=== PATIENT | female | born 1950 | race Caucasian/White ===

== ENCOUNTER 2016-12-30 08:00 | Outpatient (CLI) | payer BC | END 2016-12-30 23:59 | disposition home or self-care (01) | DX: N39.0 Urinary tract infection, site not specified (principal) ==

== ENCOUNTER 2017-04-27 11:41 | Outpatient (CLI) | payer BC ==
[2017-04-27 12:26] LABS: CALCIUM 9.6 mg/dL (8.5-10.3); CREATININE 0.8 mg/dL (0.4-1.0); POTASSIUM 4.2 mmol/L (3.5-5.0)
== END 2017-04-27 11:42 | disposition home or self-care (01) ==
LOC: LAB 11:41
PROVIDERS: ATTEND Family Medicine
DX: R60.9 Edema, unspecified (principal); M25.50 Pain in unspecified joint
CPT/HCPCS: 36415; 80048; 82550; 85651

== ENCOUNTER 2017-05-07 07:32 | Outpatient (CLI) | payer BC ==
[2017-05-07 08:00] LABS: BASOPHILS # (AUTO) 0.1 10^3/uL (0.0-0.1); BASOPHILS % (AUTO) 0.8 %; EOSINOPHILS # (AUTO) 0.2 10^3/uL (0.0-0.7); EOSINOPHILS % (AUTO) 2.4 %; HCT - HEMATOCRIT 45.1 % (37.0-47.0); HGB - HEMOGLOBIN 15.2 g/dL (12.0-16.0); LYMPHOCYTES # (AUTO) 2.3 10^3/uL (1.5-3.5); LYMPHOCYTES % (AUTO) 36.1 %; MEAN CORPUSCULAR HEMOGLOBIN 30.3 pg (27.0-31.0); MEAN CORPUSCULAR HGB CONC 33.8 g/dL (32.0-36.0); MEAN CORPUSCULAR VOLUME 89.8 fL (81.0-99.0); MEAN PLATELET VOLUME 8.6 fL (7.9-10.8); MONOCYTES # (AUTO) 0.3 10^3/uL (0.0-1.0); MONOCYTES % (AUTO) 5.3 %; NEUTROPHILS # (AUTO) 3.5 10^3/uL (1.5-6.6); NEUTROPHILS % (AUTO) 55.4 %; RED BLOOD COUNT 5.02 10^6/uL (4.20-5.40); RED CELL DISTRIBUTION WIDTH 13.1 % (12.0-15.0); UNCORRECTED WHITE BLOOD COUNT 6.3 x10^3/uL; WHITE BLOOD COUNT 6.3 x10^3/uL (4.8-10.8)
[2017-05-07 08:17] LABS: HEMOGLOBIN A1C 0.61 g/dL
[2017-05-07 08:18] LABS: ALBUMIN/GLOBULIN RATIO 1.2 (1.0-2.2); BILIRUBIN,TOTAL 0.8 mg/dL (0.2-1.0); BUN - BLOOD UREA NITROGEN 19 mg/dL (6-20); CALCIUM 9.4 mg/dL (8.5-10.3); CARBON DIOXIDE - CO2 27 mmol/L (21-32); CHLORIDE 96 mmol/L (101-111); CHOL/HDL RATIO 2.5 (<4.4); CHOLESTEROL 233 mg/dL; CREATININE 0.8 mg/dL (0.4-1.0); GFR - MDRD 72 (>89); GLUCOSE 100 mg/dL (70-100); HDL CHOLESTEROL 92 mg/dL; LDL/HDL RATIO 1.3 (<4.4); POTASSIUM 4.1 mmol/L (3.5-5.0); SODIUM 133 mmol/L (135-145); TOTAL PROTEIN 8.2 g/dL (6.7-8.2); TRIGLYCERIDES 91 mg/dL; VLDL CHOLESTEROL 18 mg/dL
== END 2017-05-07 07:33 | disposition home or self-care (01) ==
LOC: LAB 07:32
PROVIDERS: ATTEND Family Medicine
DX: R73.01 Impaired fasting glucose (principal); E78.5 Hyperlipidemia, unspecified; I10 Essential (primary) hypertension
CPT/HCPCS: 36415; 80053; 80061; 83036; 85025

== ENCOUNTER 2017-11-11 14:57 | Outpatient (CLI) | payer BC ==
--- NOTE | 2017-11-13 15:57 | Mammography Report ---
DIGITAL SCREENING MAMMOGRAM: 11/11/2017 CLINICAL INDICATION: A 67-year-old nulliparous patient with history of benign right breast biopsy, for screening. COMPARISON: 08/2016, 07/2015, 06/2014, 04/2013, 04/2012, 04/2011, 04/2010. TECHNIQUE: Routine CC and MLO projections were obtained of the breasts. FINDINGS: The breasts again demonstrate scattered fibroglandular densities bilaterally. Coarse and punctate, typically benign calcifications are present. Postbiopsy changes in the right breast are stable. No suspicious masses, clustered microcalcifications, or regions of architectural distortion are identified. IMPRESSION: BENIGN FINDINGS. RECOMMENDATION: ROUTINE ANNUAL SCREENING UNLESS OTHERWISE CLINICALLY INDICATED. BIRADS CATEGORY 2-BENIGN FINDINGS. STANDARD QUALIFYING STATEMENTS: 1. This examination was reviewed with the aid of Computer-Aided Detection (CAD). 2. A negative or benign imaging report should not delay biopsy if clinically suspicious findings are present. Consider surgical consultation if warranted. More than 5% of cancers are not identified by imaging. 3. Dense breasts may obscure an underlying neoplasm. TD: 11/13/2017 15:56
== END 2017-11-11 14:58 | disposition home or self-care (01) ==
LOC: DI 14:57
PROVIDERS: ATTEND Family Medicine
DX: Z12.31 Encounter for screening mammogram for malignant neoplasm of breast (principal)
CPT/HCPCS: 77067

== ENCOUNTER 2018-05-07 14:28 | Outpatient (CLI) | payer BC ==
--- NOTE | 2018-05-07 15:43 | DEXA Report ---
Procedure Date: 05/07/2018 Accession Number: [id number] / [id number] Procedure: DEX - Dexa Spine and/or Hip CPT Code: FULL RESULT: EXAM: DUAL EMISSION X-RAY ABSORPTIOMETRY (DXA) SCAN EXAM DATE: 05/07/2018 02:56 PM. CLINICAL HISTORY: Bone disorder. COMPARISON: None. ADDITIONAL PATIENT INFORMATION: Postmenopausal patient with history of low bone mineral density. Clinical factors included in FRAX calculation if applicable: None known. MODALITY INFORMATION: Central DEXA bone densitometry on a I Do Now I Don't W system ([id number]). FRAX version 3.08 utilized for probability calculation of 10 year fracture risk. TECHNIQUE: Lumbar spine, left hip evaluated. TECHNIQUE LIMITATIONS/EXCLUSIONS: None. FINDINGS: Lumbar Spine: Bone mineral density 1.210 g/sq cm, T-score 0.3, Z-score 1.9. Femoral Neck: Bone mineral density 0.854 g/sq cm, T-score -1.3, Z-score 0.3. Total Hip: Bone mineral density 0.893 g/sq cm, T-score -0.9, Z-score 0.5. IMPRESSION: Normal bone density for cohort. World Health Organization (WHO) Reporting guidelines (based on lowest BMD) for postmenopausal and perimenopausal women, men age 50 years and older: Normal: T-score at or greater than -1.0 Osteopenia: T-score between -1.1 to -2.4 Osteoporosis: T-score at or less than -2.5 National Osteoporosis Foundation/International Society for Clinical Densitometry recommended use of WHO Fracture risk assessment tool (FRAX): Untreated postmenopausal women or men age 50-90 with low bone mass (T score between -1.1 to -2.4), no prior hip or vertebral fracture, and an evaluable hip for scan. RADIA
== END 2018-05-07 14:29 | disposition home or self-care (01) ==
LOC: DI 14:28
PROVIDERS: ATTEND Family Medicine
DX: M89.9 Disorder of bone, unspecified (principal); Z78.0 Asymptomatic menopausal state
CPT/HCPCS: 77080

== ENCOUNTER 2018-06-25 08:13 | Outpatient (CLI) | payer BC ==
[2018-06-25 09:02] LABS: BASOPHILS % (AUTO) 0.3 %; EOSINOPHILS % (AUTO) 1.6 %; HGB - HEMOGLOBIN 12.7 g/dL (12.0-16.0); LYMPHOCYTES % (AUTO) 79.2 %; MEAN CORPUSCULAR HEMOGLOBIN 34.9 pg (27.0-31.0); MEAN CORPUSCULAR HGB CONC 35.7 g/dL (32.0-36.0); MEAN CORPUSCULAR VOLUME 97.8 fL (81.0-99.0); MEAN PLATELET VOLUME 7.5 fL (7.9-10.8); MONOCYTES % (AUTO) 0.5 %; NEUTROPHILS % (AUTO) 18.4 %; PLT - PLATELET COUNT 183 10^3/uL (130-450); RED BLOOD COUNT 3.64 10^6/uL (4.20-5.40); RED CELL DISTRIBUTION WIDTH 14.1 % (12.0-15.0)
[2018-06-25 09:11] LABS: ALBUMIN 3.9 g/dL (3.2-5.5); ALBUMIN/GLOBULIN RATIO 1.1 (1.0-2.2); ALKALINE PHOSPHATASE 55 IU/L (42-121); ALT ALANINE AMINOTRANSFERASE 22 IU/L (10-60); AST ASPARTATE AMINOTRANSFERASE 21 IU/L (10-42); BILIRUBIN,TOTAL 0.6 mg/dL (0.2-1.0); BUN - BLOOD UREA NITROGEN 19 mg/dL (6-20); CALCIUM 8.9 mg/dL (8.5-10.3); CARBON DIOXIDE - CO2 27 mmol/L (21-32); CHLORIDE 98 mmol/L (101-111); CHOL/HDL RATIO 2.1 (<4.4); CHOLESTEROL 213 mg/dL; CREATININE 0.7 mg/dL (0.4-1.0); GFR - MDRD 83 (>89); GLUCOSE 103 mg/dL (70-100); HDL CHOLESTEROL 101 mg/dL; LDL CHOLESTEROL,CALCULATED 103 mg/dL; SODIUM 133 mmol/L (135-145); TOTAL PROTEIN 7.4 g/dL (6.7-8.2); VLDL CHOLESTEROL 9 mg/dL
[2018-06-25 09:20] LABS: WHITE BLOOD COUNT 1.4 x10^3/uL (4.8-10.8)
[2018-06-25 09:21] LABS: BAND NEUTROPHILS % (MANUAL) 0 %
[2018-06-25 09:30] LABS: ABNORMAL LYMPHS % (MANUAL) 31 %; LYMPHOCYTES % (MANUAL) 39 %; MONOCYTES # (MANUAL) 0.1 10^3/uL (0.0-1.0); NEUTROPHILS # (MANUAL) 0.3 10^3/uL (1.5-6.6); NEUTROPHILS % (MANUAL) 19 %
[2018-06-25 09:32] LABS: PLATELET ESTIMATE, MANUAL NORMAL (130-450,000) (NORMAL); RBC MORPHOLOGY (MULTIPLE) NORMAL APPEARANCE (NORMAL)
[2018-06-25 09:33] LABS: DIFFERENTIAL COMMENT MANUAL DIFFERENTIAL
== END 2018-06-25 08:14 | disposition home or self-care (01) ==
LOC: LAB 08:13
PROVIDERS: ATTEND Family Medicine
DX: I10 Essential (primary) hypertension (principal); E78.5 Hyperlipidemia, unspecified; D70.9 Neutropenia, unspecified
CPT/HCPCS: 36415; 80053; 80061; 83721; 85025

== ENCOUNTER 2018-06-25 14:59 | Outpatient (CLI) | payer BC ==
[2018-06-25 19:27] LABS: BASOPHILS % (AUTO) 0.2 %; EOSINOPHILS % (AUTO) 1.8 %; HGB - HEMOGLOBIN 13.2 g/dL (12.0-16.0); LYMPHOCYTES # (AUTO) 1.1 10^3/uL (1.5-3.5); MEAN CORPUSCULAR HEMOGLOBIN 34.5 pg (27.0-31.0); MEAN CORPUSCULAR HGB CONC 34.8 g/dL (32.0-36.0); MEAN CORPUSCULAR VOLUME 99.1 fL (81.0-99.0); MEAN PLATELET VOLUME 7.9 fL (7.9-10.8); PLT - PLATELET COUNT 194 10^3/uL (130-450); RED BLOOD COUNT 3.84 10^6/uL (4.20-5.40); RED CELL DISTRIBUTION WIDTH 14.4 % (12.0-15.0)
[2018-06-25 20:23] LABS: PLATELET ESTIMATE, MANUAL NORMAL (130-450,000) (NORMAL); PLATELET MORPHOLOGY NORMAL APPEARANCE (NORMAL); RBC MORPHOLOGY (MULTIPLE) 1+ ANISOCYTOSIS (NORMAL)
[2018-06-25 20:50] LABS: WHITE BLOOD COUNT 1.5 x10^3/uL (4.8-10.8)
[2018-06-25 20:51] LABS: NEUTROPHILS # (AUTO) 0.4 10^3/uL (1.5-6.6)
== END 2018-06-25 15:00 | disposition home or self-care (01) ==
LOC: LAB.WCP 14:59
PROVIDERS: ATTEND Nurse Practitioner
DX: D70.9 Neutropenia, unspecified (principal)
CPT/HCPCS: 85025

== ENCOUNTER 2018-07-02 08:16 | Outpatient (CLI) | payer BC ==
[2018-07-02 14:43] LABS: ALBUMIN/GLOBULIN RATIO 1.2 (1.0-2.2); BILIRUBIN,TOTAL 0.3 mg/dL (0.2-1.0); CALCIUM 9.3 mg/dL (8.5-10.3); CREATININE 0.7 mg/dL (0.4-1.0); TOTAL PROTEIN 7.3 g/dL (6.7-8.2)
[2018-07-02 14:46] LABS: BASOPHILS % (AUTO) 0.3 %; EOSINOPHILS % (AUTO) 1.4 %; HGB - HEMOGLOBIN 12.4 g/dL (12.0-16.0); LYMPHOCYTES # (AUTO) 1.2 10^3/uL (1.5-3.5); LYMPHOCYTES % (AUTO) 82.6 %; MEAN CORPUSCULAR HEMOGLOBIN 35.1 pg (27.0-31.0); MEAN CORPUSCULAR HGB CONC 35.6 g/dL (32.0-36.0); MEAN CORPUSCULAR VOLUME 98.7 fL (81.0-99.0); MEAN PLATELET VOLUME 8.2 fL (7.9-10.8); MONOCYTES % (AUTO) 1.1 %; NEUTROPHILS % (AUTO) 14.6 %; PLT - PLATELET COUNT 177 10^3/uL (130-450); RED BLOOD COUNT 3.52 10^6/uL (4.20-5.40); RED CELL DISTRIBUTION WIDTH 13.9 % (12.0-15.0)
[2018-07-02 14:54] LABS: NEUTROPHILS # (AUTO) 0.2 10^3/uL (1.5-6.6); WHITE BLOOD COUNT 1.5 x10^3/uL (4.8-10.8)
[2018-07-02 15:11] LABS: INR 0.9 (0.8-1.2); PT - PROTHROMBIN TIME 10.4 secs (9.9-12.6)
[2018-07-02 15:25] LABS: PLATELET ESTIMATE, MANUAL NORMAL (130-450,000) (NORMAL); PLATELET MORPHOLOGY NORMAL APPEARANCE (NORMAL); RBC MORPHOLOGY (MULTIPLE) NORMAL APPEARANCE (NORMAL)
== END 2018-07-02 08:17 | disposition home or self-care (01) ==
LOC: LAB.WCP 08:16
PROVIDERS: ATTEND Family Medicine
DX: D70.9 Neutropenia, unspecified (principal); D61.818 Other pancytopenia
CPT/HCPCS: 36415; 80053; 85025; 85044; 85610; 85730

== ENCOUNTER 2018-10-11 09:33 | Inpatient (IN) | payer MEDICARE, BC ==
--- NOTE | 2018-10-11 11:10 | XRAY Report ---
Reason: fever neutropenia Procedure Date: 10/11/2018 Accession Number: [id number] / [id number] Procedure: XR - Chest 2 View X-Ray CPT Code: 50798 FULL RESULT: EXAM: CHEST RADIOGRAPHY EXAM DATE: 10/11/2018 11:01 AM. CLINICAL HISTORY: Fever neutropenia. COMPARISON: None. TECHNIQUE: 2 views. FINDINGS: Lungs/Pleura: No focal opacities evident. No pleural effusion. No pneumothorax. Normal volumes. Mediastinum: Heart and mediastinal contours are unremarkable. Other: Right subclavian approach port with tip in the region of the lower SVC. IMPRESSION: No pneumonia. RADIA
--- NOTE | 2018-10-11 11:19 | ED Physician Documentation ---
History of Present Illness - Stated complaint Stated Complaint: FEVER/FATIGUE - Chief complaint Chief Complaint: Fever - History obtained from History obtained from: Patient, Family - History of Present Illness Timing: Today - Additonal information Additional information: 68-year-old female with a history of acute myelogenous leukemia who is undergone induction and 2 cycles of consolidation has developed fatigue and today has fever. She noted a fever at her home today of 101. She does not have other symptoms with the exception of the fatigue. She most recently had a round of consolidative chemotherapy on 24 September 2018. She was seen in the [facility] clinic last week and had platelets transfused. She did not require blood at that time. She was noted to be neutropenic. She did not have fever or symptoms at that time. Review of Systems Constitutional: reports: Fever, Fatigue. denies: Chills, Myalgias Eyes: denies: Decreased vision Ears: denies: Ear pain Nose: denies: Rhinorrhea / runny nose, Congestion Throat: denies: Sore throat Cardiac: denies: Chest pain / pressure, Palpitations Respiratory: denies: Dyspnea, Cough GI: denies: Abdominal Pain, Nausea, Vomiting, Constipation, Diarrhea : denies: Dysuria, Frequency Skin: denies: Rash Musculoskeletal: denies: Neck pain, Back pain, Extremity pain Neurologic: reports: Generalized weakness. denies: Focal weakness, Numbness PD PAST MEDICAL HISTORY - Past Medical History Cardiovascular: Hypertension - Past Surgical History Past Surgical History: Yes - Present Medications Home Medications: Ambulatory Orders Medication Instructions Recorded Confirmed Lisinopril 10 mg PO DAILY 08/31/14 10/11/18 Acyclovir 1 tab PO DAILY 09/17/18 10/11/18 Ketoconazole [Extina] 1 applic TD DAILY 09/17/18 10/11/18 C,E,Zinc,Copper 11/Dkmyj6p/Lut 10/11/18 [Ocuvite Adult 50 Plus Softgel] Bath-3/Dha/Epa/Fish Oil [Fish Oil 10/11/18 1,000 mg Softgel] - Allergies Allergies/Adverse Reactions: Allergies Allergy/AdvReac Type Severity Reaction Status Date / Time Cephalosporins Allergy Rash Verified 10/11/18 09:53 estrogens, conjugated Allergy Unknown Verified 10/11/18 09:53 [From Premarin] Sulfa (Sulfonamide Allergy Rash Verified 10/11/18 09:53 Antibiotics) thimerosal Allergy Rash Verified 10/11/18 09:53 - Social History Does the pt smoke?: No Smoking Status: Never smoker Does the pt drink ETOH?: Yes Does the pt have substance abuse?: No - Immunizations Immunizations are current?: Yes - POLST Patient has POLST: No PD ED PE NORMAL - Vitals Vital signs reviewed: Yes (tachy ) - General General: Alert and oriented X 3, No acute distress, Well developed/nourished, Other (pale appearing ) - HEENT HEENT: Atraumatic, PERRL, EOMI, Ears normal, Moist mucous membranes, Pharynx benign - Neck Neck: Supple, no meningeal sign, No bony TTP - Cardiac Cardiac: No murmur, Other (tachy to 100) - Respiratory Respiratory: No respiratory distress, Clear bilaterally - Abdomen Abdomen: Soft, Non tender - Back Back: No CVA TTP, No spinal TTP - Derm Derm: Warm and dry, No rash, Other (pale ) - Extremities Extremities: No deformity, No edema - Neuro Neuro: Alert and oriented X 3, relationship management lead 2-12 intact, No motor deficit, No sensory deficit, Normal speech Eye Opening: Spontaneous Motor: Obeys Commands Verbal: Oriented GCS Score: 15 - Psych Psych: Normal mood, Normal affect Results - Vitals Vitals: Vital Signs - 24 hr 10/11/18 10/11/18 10/11/18 09:45 10:48 13:28 Temperature 36.6 C 36.3 C L 36.1 C L Heart Rate 104 H 98 98 Respiratory 16 18 18 Rate Blood Pressure 97/71 144/72 H 141/58 H O2 Saturation 100 100 100 Oxygen O2 Source Room air - Labs Labs: Laboratory Tests 10/11/18 10/11/18 10/11/18 11:24 11:24 11:24 WBC 0.3 L* RBC 2.11 L Hgb 6.7 L* Hct 19.0 L* MCV 89.6 MCH 31.7 H MCHC 35.4 RDW 18.2 H Plt Count 39 L MPV 7.1 L Neut # (Auto) Not Reportable Lymph # (Auto) Not Reportable Luce # (Auto) Not Reportable Eos # (Auto) Not Reportable Baso # (Auto) Not Reportable Absolute Nucleated RBC Not Reportable Total Counted 50 Band Neuts % (Manual) 0 Abnorm Lymph % (Manual) 4 Nucleated RBC % Not Reportable Neutrophils # (Manual) 0.0 L* Lymphocytes # (Manual) 0.3 L Monocytes # (Manual) 0.0 Eosinophils # (Manual) 0.0 Basophils # (Manual) 0.0 Differential Comment MANUAL DIFFERENTIAL Platelet Estimate DECREASED (<130,000) Platelet Morphology NORMAL APPEARANCE RBC Morph Micro Appear 2+ MICROCYTOSIS Sodium 134 L Potassium 3.9 Chloride 102 Carbon Dioxide 25 Anion Gap 7.0 BUN 19 Creatinine 0.7 Estimated GFR (MDRD) 83 L Glucose 107 H Lactic Acid Calcium 8.9 Total Bilirubin 0.8 AST 30 ALT 57 Alkaline Phosphatase 81 Troponin I < 0.04 Total Protein 6.6 L Albumin 3.5 Globulin 3.1 Albumin/Globulin Ratio 1.1 Lipase 40 Urine Color Urine Clarity Urine pH Ur Specific [place] Urine Protein Urine Glucose (UA) Urine Ketones Urine Occult Blood Urine Nitrite Urine Bilirubin Urine Urobilinogen Ur Leukocyte Esterase Ur Microscopic Review Urine Culture Comments 10/11/18 10/11/18 11:24 11:24 WBC RBC Hgb Hct MCV MCH MCHC RDW Plt Count MPV Neut # (Auto) Lymph # (Auto) Luce # (Auto) Eos # (Auto) Baso # (Auto) Absolute Nucleated RBC Total Counted Band Neuts % (Manual) Abnorm Lymph % (Manual) Nucleated RBC % Neutrophils # (Manual) Lymphocytes # (Manual) Monocytes # (Manual) Eosinophils # (Manual) Basophils # (Manual) Differential Comment Platelet Estimate Platelet Morphology RBC Morph Micro Appear Sodium Potassium Chloride Carbon Dioxide Anion Gap BUN Creatinine Estimated GFR (MDRD) Glucose Lactic Acid 0.8 Calcium Total Bilirubin AST ALT Alkaline Phosphatase Troponin I Total Protein Albumin Globulin Albumin/Globulin Ratio Lipase Urine Color LT. YELLOW Urine Clarity CLEAR Urine pH 7.0 Ur Specific [place] <=1.005 Urine Protein NEGATIVE Urine Glucose (UA) NEGATIVE Urine Ketones NEGATIVE Urine Occult Blood NEGATIVE Urine Nitrite NEGATIVE Urine Bilirubin NEGATIVE Urine Urobilinogen 0.2 (NORMAL) Ur Leukocyte Esterase NEGATIVE Ur Microscopic Review NOT INDICATED Urine Culture Comments NOT INDICATED - Rads (name of study) 2 VEIW CHEST Radiology: Prelim report reviewed (Impression: No pneumonia.), EMP read indepedently, See rad report PD MEDICAL DECISION MAKING - ED course Complexity details: considered differential, d/w patient, d/w family ED course: 68-year-old female with a history of AML who is undergoing chemotherapy is neutropenic with no neutrophils today. Blood cultures x2 are drawn x-ray of the chest is obtained without evidence of infiltrate and urine is without evidence of infection. The patient is afebrile here today. She does have a markedly low hemoglobin and hematocrit at 6.7 and 19.0. She will require blood and admission for neutropenic fever. Dr. Bowen is consulted in the case and graciously agrees to admit the patient for treatment. Departure - Departure Disposition: [facility] DC/Xfer Clinical Impression: Fever and neutropenia Anemia Qualifiers: Anemia type: other cause Other causes of anemia: antineoplastic chemotherapy Qualified Code(s): D64.81 - Anemia due to antineoplastic chemotherapy Condition: Stable
[2018-10-11 11:35] LABS: BILIRUBIN,URINE NEGATIVE (NEGATIVE); GLUCOSE, URINE (UA) NEGATIVE (NEGATIVE); KETONES,URINE (UA) NEGATIVE (NEGATIVE); LEUKOCYTE ESTERASE, URINE NEGATIVE (NEGATIVE); NITRITE,URINE NEGATIVE (NEGATIVE); OCCULT BLOOD,URINE NEGATIVE (NEGATIVE); PROTEIN,URINE NEGATIVE (NEGATIVE); UROBILINOGEN,URINE 0.2 (NORMAL) E.U./dL (NORMAL)
[2018-10-11 11:36] LABS: CLARITY,URINE CLEAR (CLEAR)
[2018-10-11 11:42] LABS: EOSINOPHILS % (AUTO) 1.6 %; LYMPHOCYTES % (AUTO) 92.6 %; MEAN CORPUSCULAR HEMOGLOBIN 31.7 pg (27.0-31.0); MEAN CORPUSCULAR HGB CONC 35.4 g/dL (32.0-36.0); MEAN CORPUSCULAR VOLUME 89.6 fL (81.0-99.0); MEAN PLATELET VOLUME 7.1 fL (7.9-10.8); MONOCYTES % (AUTO) 5.3 %; NEUTROPHILS % (AUTO) 0.5 %; PLT - PLATELET COUNT 39 10^3/uL (130-450); RED BLOOD COUNT 2.11 10^6/uL (4.20-5.40); RED CELL DISTRIBUTION WIDTH 18.2 % (12.0-15.0)
[2018-10-11 11:44] LABS: HGB - HEMOGLOBIN 6.7 g/dL (12.0-16.0); WHITE BLOOD COUNT 0.3 x10^3/uL (4.8-10.8)
[2018-10-11 11:46] LABS: BAND NEUTROPHILS % (MANUAL) 0 %
[2018-10-11 11:49] LABS: ALBUMIN 3.5 g/dL (3.2-5.5); ALBUMIN/GLOBULIN RATIO 1.1 (1.0-2.2); BILIRUBIN,TOTAL 0.8 mg/dL (0.2-1.0); CALCIUM 8.9 mg/dL (8.5-10.3); CREATININE 0.7 mg/dL (0.4-1.0); TOTAL PROTEIN 6.6 g/dL (6.7-8.2)
[2018-10-11 12:13] LABS: ABNORMAL LYMPHS % (MANUAL) 4 %; LYMPHOCYTES # (MANUAL) 0.3 10^3/uL (1.5-3.5); LYMPHOCYTES % (MANUAL) 92 %
[2018-10-11 12:14] LABS: DIFFERENTIAL COMMENT MANUAL DIFFERENTIAL; PLATELET ESTIMATE, MANUAL DECREASED (<130,000) (NORMAL); PLATELET MORPHOLOGY NORMAL APPEARANCE (NORMAL)
[2018-10-11 12:17] LABS: NEUTROPHILS % (MANUAL) 0 %
[2018-10-11] MEDS ORDERED: ACETAMINOPHEN 325 MG TABLET PO PRN (14:51)
[2018-10-11] MEDS ORDERED: PROCHLORPERAZINE 10 MG/2 ML VIAL IVP PRN (14:51)
[2018-10-11] MEDS ORDERED: TEMAZEPAM 15 MG CAPSULE PO PRN (14:51)
--- NOTE | 2018-10-11 15:55 | HISTORY & PHYSICAL EXAMINATION ---
Chief Complaint - Chief Complaint Chief Complaint: fever, weakness, nausea History of Present Illness - Admitted From Admitted From:: ED - History Obtained From Records Reviewed: yes History obtained from: chart review, patient Exam Limitations: none - History of Present Illness HPI Comment/Other: Lashanda Turcios is a pale appearing 68-year old female with a past medical history of hypertension, hyperlipidemia, peripheral neuropathy, pantytopenia, neurtopenia, AML, osteoarthritis, osteopenia, recurrent UTI, BLE edema, impaired fasting glucose, chronic low back pain, ataxia, atrophic vaginitis, dysuria, cervical spine DJD, status post cervical laminectomy, seasonal allergies, post nasal drip, febrocystic breast disease and chronic constipation. She is currently being seen by Dr. Haro for treatment of her acute myelogenous leukemia and is status post induction chemotherapy, followed by 2 cycles of consolidation therapy. On 10/06/18, she had her last appointment and was transfused with platelets for a low platelet count of 11. This morning she awoke with a fever reported as 101, had mild nausea, mild shortness of breath with exertion, and was profoundly tired. She contacted oncology who instructed her to come to the ED. Once in the ED the patient was found to have no neutrophils on arrival, an H/H of 6.7/19.0, tachycardic with a heart rate of 114, hypotensive with a blood pressure of 97/71, and had continued fatigue. On exam, the patient is slightly short of breath, but can speak in full sentences, she denies syncope, confusion, chest pain, chest pressure, anxiety, vomiting, diarrhea, bleeding, or a productive cough. She denies sick contacts, and has had no recent illness. Her , Barak is at the bedside and appears well. Given her worrisome findings of early sepsis, and severe anemia, she was admitted to the hospital. History - Past Medical History Cardiovascular: reports: Hypertension, High cholesterol Neuro: reports: Peripheral neuropathy Endocrine/Autoimmune: reports: None GI: reports: GERD CLINICAL TRIAL MANAGER: reports: None : reports: Nocturia, Frequency HEENT: reports: Chronic sinusitis, Chronic hearing loss Psych: reports: None Musculoskeletal: reports: Osteopenia Derm: reports: None MRSA Hx?: No Other Past Medical History: Dx AML on 07/19/2018. with induction chemotherapy, - Past Surgical History Neuro: reports: Other (cervical laminectomy) - Family & Social History Family History: Mother: , Father: Living arrangement: At home Living Situation: With spouse/s.o. 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 She lives independently with her , Barak. She denies previous use of tobacco or illicit drugs. She had a history of occasional alcohol use, but not since her chemo treatments. She wishes to be a FULL code. - Substance History Use: Uses substance without health or social issues: NONE Abuse: Recurrent use of substance despite neg consequences: NONE Dependence: Experiences withdrawal or developed tolerances: NONE - POLST Patient has POLST: No POLST Status: Full Code Meds/Allgy - Home Medications Home Medications: Ambulatory Orders Medication Instructions Recorded Confirmed Lisinopril 10 mg PO DAILY 08/31/14 10/11/18 Acyclovir 400 mg PO DAILY 09/17/18 10/11/18 C,E,Zinc,Copper 11/Bxxxl1j/Lut 1 cap PO DAILY 10/11/18 10/11/18 [Ocuvite Adult 50 Plus Softgel] Cetirizine HCl 10 mg PO DAILY 10/11/18 10/11/18 Cholecalciferol (Vitamin D3) 5,000 units PO DAILY 10/11/18 10/11/18 [Vitamin D3] Cytarabine [Kay-C] 1,600 mg IV MOWEFR@0500,1700 10/11/18 10/11/18 Fluconazole 100 mg PO DAILY 10/11/18 10/11/18 [place]-3 Acid Ethyl Esters [Lovaza] 1 gm PO DAILY 10/11/18 10/11/18 Polyethylene Glycol 3350 17 gm PO DAILY 10/11/18 10/11/18 Wheat Dextrin [Benefiber] 1 packet PO DAILY 10/11/18 10/11/18 - Allergies Allergies/Adverse Reactions: Allergies Allergy/AdvReac Type Severity Reaction Status Date / Time Cephalosporins Allergy Rash Verified 10/11/18 09:53 estrogens, conjugated Allergy Unknown Verified 10/11/18 09:53 [From Premarin] Sulfa (Sulfonamide Allergy Rash Verified 10/11/18 09:53 Antibiotics) thimerosal Allergy Rash Verified 10/11/18 09:53 Review of Systems - Constitutional Constitutional: reports: Fatigue, Fever, Malaise, Weakness, Poor appetite - Eyes Eyes: reports: Corrective lenses - Ears, Nose & Throat Ears, Nose & Throat: reports: Hearing loss, Postnasal drainage, Mouth lesions (d ue to chemo, on anti-fungals) - Cardiovascular Cariovascular: reports: Edema (BLEs-chronic), Lightheadedness - Respiratory Respiratory: reports: Cough, SOB at rest, SOB with exertion - Gastrointestinal Gastrointestinal: reports: Constipation, Nausea, Reflux/heartburn, Poor appetite - Genitourinary Genitourinary: reports: Dysuria, Nocturia - Musculoskeletal Musculoskeletal: reports: Stiffness, Limited range of motion - Integumentary Integumentary: reports: Dryness, Other (petechiae noted to BLEs, pale appearance, pale mucous membranes.) - Neurological Neurological: reports: General weakness, Pre-existing deficit - Hematologic/Lymphatic Hematologic/Lymphatic: reports: Anemia, Petechiae - All Other Systems All Other Systems: reports: Reviewed and negative Prior Level of Functionality: lives independently with her . No recent falls. Exam - Vital Signs Reviewed Vital Signs: Yes Vital Signs: Vital Signs x48h Temp Pulse Resp BP Pulse Ox 10/11/18 13:28 36.1 C L 98 18 141/58 H 100 10/11/18 10:48 36.3 C L 98 18 144/72 H 100 10/11/18 09:45 36.6 C 104 H 16 97/71 100 - Physical Exam General Appearance: positive: No acute distress, Alert Eyes Bilateral: positive: PERRL ENT: positive: Pharynx nml, Oral lesions (healing, caused by chemo), Dry mucous membranes Neck: positive: Thyroid nml, No JVD, Trachea midline Respiratory: positive: Chest non-tender, No respiratory distress, Breath sounds nml Cardiovascular: positive: Regular rate & rhythm, No gallop, Systolic murmur Peripheral Pulses: positive: 2+ Abdomen: positive: Non-tender, Nml bowel sounds, Other (rounded, soft) Back: positive: Nml inspection Skin: positive: No rash, Warm, Dry, Pallor Extremities: positive: Non-tender, Pedal edema (BLEs) Neurologic/Psychiatric: positive: Oriented x3, CN's nml (2-12), Motor nml, Sensation nml, Mood/affect nml, Weakness Reflexes: Bicep (R): 3+, Bicep (L): 3+ Sepsis Event Note (H) - Evaluation Current Stage of Sepsis: Ruled out Possible source of Sepsis: positive: Unknown - Sepsis Criteria Sepsis Criteria: Suspected or Documented, Recorded Heart Rate greater than 90 bpm, WBC count greater than 12,000 or less than 4000 Conclusion/Plan - Problem List (1) Fever and neutropenia Conclusion/Plan: The patient reported an elevated temp max at home of 101 F, and since arriving in the ED has been afebrile. She had shortness of breath on exertion, and appears slightly short of breath on my exam and can speak full sentences. She has a WBC count of 0.3 and an ANC of as not reportable. She is currently rece iving chemotherapy and her last treatment was 09/24/18. Plan: IV Cipro/meropenum, await blood cultures, urine cultures, monitor labs, monitor VS. (2) Anemia due to chemotherapy Conclusion/Plan: On arrival to the ED she was found to have an H/H of 6.7/, which was reduced from her last appointment on 10/06/18. She denies any evidence of bleeding, and this anemia is thought to be a result of her ongoing chemotherapy for her AML. On exam, she has pale mucous membranes, petechiae noted to her BLEs, and she becomes winded if getting out of bed. She denies any syncope, falls, or dizziness while sitting still. Plan: Transfuse 2 units, monitor labs. (3) Pancytopenia Conclusion/Plan: The patient's primary oncologist, Dr. Haro describes her pancytopenia to be a direct result of her current chemotherapy. She just had a platelet transfusion on 10/06/18 for a platelet count of 11. She is now getting 2 units of PRBCs, IV antibiotics for her fever and IV fluids to prevent sepsis. Plan: Continue to treat anemia, routine labs. (4) Fatigue associated with anemia Conclusion/Plan: One of the patient's primary complaints on admission is her profound fatigue, lack of stamina, and mild shortness of breath if walking more than a few feet at once. On arrival to the ED she was found to have an H/H of 6.7/, which was reduced from her last appointment on 10/06/18. She denies any evidence of bleeding, and this anemia is thought to be a result of her ongoing chemotherapy for her AML. Plan: Transfuse 2 units, monitor labs. (5) AML (acute myelogenous leukemia) Conclusion/Plan: The patient's illness was first discovered in early June 2018 after a routine lab check by her PCP, who noted the patient has having very low WBCs. She then got more emergent oncology care off [address] at [place]. She now sees Dr. Haro with our [facility] oncology with her last visit being 10/06/18. She is not sure of her true prognosis, and this is not considered to be in remission. She is status post induction chemo, followed by 2 cycles of consolidation chemo. Her pancytopenia is directly related to her chemotherapy as per oncology notes. Plan: Treat acute condition, contact [facility] oncology for concerns. Qualifiers: Leukemia Active/Remission status: without remission Qualified Code(s): C92.00 - Acute myeloblastic leukemia, not having achieved remission (6) Oral lesion Conclusion/Plan: The patient states that her oral lesions are much improved, but still has a poor appetite from having this chronically. She takes both diflucan and Acyclovir at home for this. On exam, there were no obvious open lesions, although her tongue appeared pale, likely from anemia. Plan: Continue usual home meds, monitor for worsening. (7) Alopecia Conclusion/Plan: The patient admits to this after starting her chemo, and now wears a stylish hat. Plan: Monitor for improvement. (8) Seasonal allergies Conclusion/Plan: The patient takes Zyrtec daily, which is continued here. Plan: Continue med. (9) Hypertension Conclusion/Plan: The patient normally is prescribed lisinopril at home, that is now on hold due to ongoing hypotension with her low blood volume. Plan: Monitor vital signs, resume lisinopril when appropriate. Qualifiers: Hypertension type: essential hypertension Qualified Code(s): I10 - Essential (primary) hypertension - Lab Results Lab results reviewed: Yes Fish Bones: 10/11/18 11:24 10/11/18 11:24 - Diagnostic Imaging Results Diagnostic Imaging Results: positive: Prelim report reviewed Core Measures - Anticipated LOS I expect patient to be DC'd or transferred within 96 hours.: Yes - DVT/VTE - Prophylaxis VTE/DVT Device ordered at admit?: Yes VTE/DVT Prophylaxis med ordered at admit?: No Not Ordered - Medical Reason: Contraindicated - Stroke - Rehab Assessment Rehab services assessment to be ordered?: No Not Ordered - Medical Reason: Contraindicated - AMI - Statin at Admit Aspirin Prescribed on Admit: No Not Ordered - Medical Reason: Contraindicated
[2018-10-11] MEDS: SODIUM CHLORIDE FLUSH 0.9% 10 ML SYRINGE IVP PRN ×2 (16:28→17:35)
[2018-10-11] MEDS: SODIUM CHLORIDE FLUSH 0.9% 10 ML SYRINGE IVP SCH (16:28)
[2018-10-11] MEDS ORDERED: PIPERACILLIN/TAZOBACTAM 3.375 GM in SODIUM CHLORIDE 0.9% MINIBAG 100 ML IV SCH (17:00)
[2018-10-11] MEDS ORDERED: levoFLOXacin 500 MG/100 ML 500 MG/100 ML BAG IV SCH (17:00)
[2018-10-11] MEDS ORDERED: SACCHAROMYCES BOULARDII 250 MG CAPSULE PO SCH (17:00)
[2018-10-11] MEDS ORDERED: VANCOMYCIN PER PHARMACY 100 GM in SODIUM CHLORIDE 0.9% 250 ML IV SCH (17:00)
[2018-10-11] MEDS: SODIUM CHLORIDE 0.9% 1,000 ML IV SCH (17:34)
[2018-10-11] MEDS: CIPROFLOXACIN IV 400 MG/200 ML IV SCH (17:35)
[2018-10-11] MEDS: MEROPENEM 1 GM in SODIUM CHLORIDE 0.9% MINIBAG 100 ML IV SCH (18:51)
[2018-10-11] MEDS: FAMOTIDINE 20 MG TABLET PO SCH (21:01)
[2018-10-12] MEDS: CIPROFLOXACIN IV 400 MG/200 ML IV SCH ×3 (00:58→16:15)
[2018-10-12] MEDS: MEROPENEM 1 GM in SODIUM CHLORIDE 0.9% MINIBAG 100 ML IV SCH ×3 (02:12→17:39)
[2018-10-12] MEDS: SODIUM CHLORIDE FLUSH 0.9% 10 ML SYRINGE IVP SCH ×3 (07:33→20:05)
[2018-10-12] MEDS: LISINOPRIL 5 MG TABLET PO SCH (09:19)
[2018-10-12] MEDS: ACYCLOVIR 200 MG CAPSULE PO SCH (09:19)
[2018-10-12] MEDS: CETIRIZINE 10 MG TABLET PO SCH (09:20)
[2018-10-12] MEDS: CHOLECALCIFEROL 5,000 UNIT CAPSULE PO SCH (09:20)
[2018-10-12] MEDS: FAMOTIDINE 20 MG TABLET PO SCH ×2 (09:20→20:05)
[2018-10-12] MEDS: FLUCONAZOLE 100 MG TABLET PO SCH (09:20)
[2018-10-12] MEDS: POLYETHYLENE GLYCOL 3350 17 GM PACKET PO SCH (09:21)
[2018-10-12] MEDS: OCUVITE PO SCH (09:21)
[2018-10-12] MEDS: [UNRECOGNIZED DRUG - OTHER] PO SCH (09:21)
[2018-10-12] MEDS: WHEAT DEXTRIN POWDER PACKET PO SCH (09:22)
[2018-10-12 09:39] LABS: ALBUMIN 3.5 g/dL (3.2-5.5); ALBUMIN/GLOBULIN RATIO 1.2 (1.0-2.2); BILIRUBIN,TOTAL 0.9 mg/dL (0.2-1.0); CALCIUM 8.7 mg/dL (8.5-10.3); CREATININE 0.8 mg/dL (0.4-1.0); TOTAL PROTEIN 6.5 g/dL (6.7-8.2)
[2018-10-12 09:40] LABS: BASOPHILS % (AUTO) 0.1 %; EOSINOPHILS % (AUTO) 0.8 %; HGB - HEMOGLOBIN 9.7 g/dL (12.0-16.0); LYMPHOCYTES % (AUTO) 75.1 %; MEAN CORPUSCULAR HEMOGLOBIN 31.3 pg (27.0-31.0); MEAN CORPUSCULAR VOLUME 89.5 fL (81.0-99.0); MONOCYTES % (AUTO) 22.3 %; NEUTROPHILS % (AUTO) 1.7 %; RED CELL DISTRIBUTION WIDTH 15.2 % (12.0-15.0)
[2018-10-12 09:58] LABS: PLT - PLATELET COUNT 22 10^3/uL (130-450); WHITE BLOOD COUNT 0.3 x10^3/uL (4.8-10.8)
[2018-10-12] MEDS ORDERED: POTASSIUM CHLORIDE 20 MEQ TABLET PO SCH (09:58)
[2018-10-12 09:59] LABS: ABNORMAL LYMPHS % (MANUAL) 0 %; BAND NEUTROPHILS % (MANUAL) 0 %
[2018-10-12 10:13] LABS: BASOPHILS % (MANUAL) 2 %; DIFFERENTIAL COMMENT MANUAL DIFFERENTIAL; LYMPHOCYTES # (MANUAL) 0.2 10^3/uL (1.5-3.5); LYMPHOCYTES % (MANUAL) 74 %; MONOCYTES # (MANUAL) 0.1 10^3/uL (0.0-1.0); PLASMA CELLS % (MANUAL) 2 %; PLATELET ESTIMATE, MANUAL DECREASED (<130,000) (NORMAL); PLATELET MORPHOLOGY NORMAL APPEARANCE (NORMAL)
[2018-10-12 10:14] LABS: NEUTROPHILS % (MANUAL) 0 %
[2018-10-12] MEDS: SODIUM CHLORIDE 0.9% 1,000 ML IV SCH ×2 (10:54→20:05)
--- NOTE | 2018-10-12 11:14 | PROVIDER PROGRESS NOTE ---
Subjective - Prog Note Date Prog Note Date: 10/12/18 - Subjective Pt reports feeling: Improved Subjective: pt repot she gain the energy since she had blood transfusion at here. she denies more fever or chill. she denies cough, shortness of breath, chest pain. I discussed with Madelin APICULTURIST on [facility] for pt's care plan. Madelin recommend until plt drop to 10,000 or acute bleeding then transfusion of Plt. Madelin recommend Dr. Haro will see pt on tomorrow, will let Dr. Haro determine the care plan for pt's neuropenia since pt had AML. Current Medications - Current Medications Current Medications: Active Medications Acetaminophen (Tylenol) 650 mg PO Q4HR PRN PRN Reason: Pain or Fever > 38C (100.4F) Acyclovir (Zovirax) 400 mg PO DAILY [facility] Last Admin: 10/12/18 09:19 Dose: 400 mg Cetirizine HCl (Zyrtec) 10 mg PO DAILY [facility] Last Admin: 10/12/18 09:20 Dose: 10 mg Cholecalciferol (Vitamin D3) 5,000 unit PO DAILY [facility] Last Admin: 10/12/18 09:20 Dose: 5,000 unit Famotidine (Pepcid) 20 mg PO BID [facility] Last Admin: 10/12/18 09:20 Dose: 20 mg Fluconazole (Diflucan) 100 mg PO DAILY [facility] Last Admin: 10/12/18 09:20 Dose: 100 mg Sodium Chloride (Normal Saline 0.9%) 1,000 mls @ 83.333 mls/hr IV .Q12H [facility] Last Admin: 10/12/18 10:54 Dose: 83.33 mls/hr Ciprofloxacin (Cipro 400 Mg/200 Ml) 200 mls @ 200 mls/hr IV Q8H [facility] Last Infusion: 10/12/18 10:48 Dose: Infused Meropenem 1 gm/ Sodium (Chloride) 100 mls @ 200 mls/hr IV Q8H [facility] Last Admin: 10/12/18 10:54 Dose: 200 mls/hr Lisinopril (Zestril) 10 mg PO DAILY [facility] Last Admin: 10/12/18 09:19 Dose: 10 mg Ocuvite (Eye Vitamin () Otc Tab) 1 each PO DAILY [facility] Last Admin: 10/12/18 09:21 Dose: Not Given Polyethylene Glycol (Miralax) 17 gm PO DAILY [facility] Last Admin: 10/12/18 09:21 Dose: 17 gm Prochlorperazine Edisylate (Compazine Inj) 10 mg IVP Q6HR PRN PRN Reason: Nausea / Vomiting Sodium Chloride (Normal Saline Flush 0.9%) 10 ml IVP PRN PRN PRN Reason: NEEDED PER PROVIDER ORDERS Last Admin: 10/11/18 17:35 Dose: 10 ml Sodium Chloride (Normal Saline Flush 0.9%) 10 ml IVP 0100,0900,1700 [facility] Last Admin: 10/12/18 09:21 Dose: 10 ml Temazepam (Restoril) 15 mg PO QPM PRN PRN Reason: Insomnia Wheat Dextrin (Benefiber) 1 packet PO DAILY [facility] Last Admin: 10/12/18 09:22 Dose: Not Given Lisinopril 10 mg PO DAILY 08/31/14 Acyclovir 400 mg PO DAILY 09/17/18 C,E,Zinc,Copper 11/Sdpqf3q/Lut [Ocuvite Adult 50 Plus Softgel] 1 cap PO DAILY 10/11/18 Cetirizine HCl 10 mg PO DAILY 10/11/18 Cholecalciferol (Vitamin D3) [Vitamin D3] 5,000 units PO DAILY 10/11/18 Cytarabine [Kay-C] 1,600 mg IV MOWEFR@0500,1700 10/11/18 Fluconazole 100 mg PO DAILY 10/11/18 [place]-3 Acid Ethyl Esters [Lovaza] 1 gm PO DAILY 10/11/18 Polyethylene Glycol 3350 17 gm PO DAILY 10/11/18 Wheat Dextrin [Benefiber] 1 packet PO DAILY 10/11/18 Objective - Vital Signs/Intake & Output Reviewed Vital Signs: Yes Vital Signs: Vital Signs x48h Temp Pulse Pulse Resp BP BP Pulse Ox 10/12/18 08:19 37.2 C 97 18 147/64 H 100 10/12/18 06:50 37.4 C 90 18 119/62 100 10/12/18 06:00 36.8 C 112 H 18 159/70 H 97 10/12/18 03:15 37.4 C 87 18 137/60 H Intake & Output: Intake & Output 10/09/18 10/10/18 10/11/18 10/12/18 23:59 23:59 23:59 23:59 Intake Total 453.757 9898.104 Balance 104.298 7394.104 - Objective General Appearance: positive: No acute distress, Alert. negative: Lethargic Eyes Bilateral: positive: Normal inspection, PERRL, No lid inflammation, Conjunctivae nml ENT: positive: ENT inspection nml, Pharynx nml, No signs of dehydration. negative: Purulent nasal drainage, Pharyngeal erythema, Oral lesions Neck: positive: Nml inspection, Thyroid nml, No JVD, Trachea midline. negative: Thyromegaly, Lymphadenopathy (R), Lymphadenopathy (L), Stiff neck, Swelling/bruising, Tracheal deviation Respiratory: positive: Chest non-tender, No respiratory distress, Breath sounds nml. negative: Wheezes, Rales, Rhonchi Cardiovascular: positive: Regular rate & rhythm, No murmur, No gallop. negative: Irregularly irregular, Extrasystoles, Tachycardia, Bradycardia, JVD present, Systolic murmur, Diastolic murmur Peripheral Pulses: 2+ Radial (R), 2+ Radial (L), 2+ Dorsalis pedis (R), 2+ Dorsalis pedis (L) Abdomen: positive: Non-tender, No organomegaly, Nml bowel sounds, No distention. negative: Tenderness, Guarding, Rebound Back: positive: Nml inspection. negative: CVA tenderness (R), CVA tenderness (L) Skin: positive: Color nml, No rash, Warm, Dry. negative: Cyanosis, Diaphoresis, Pallor, Skin rash Extremities: positive: Non-tender, Full ROM, Nml appearance. negative: Calf tenderness, Joint swelling, Maritza's sign/cords Neurologic/Psychiatric: positive: Oriented x3, Motor nml, Sensation nml, Mood/affect nml. negative: Weakness, Sensory loss, Facial droop, Slurred/abnml speech, Depressed mood/affect - Lab Results Fish Bones: 10/12/18 09:05 10/12/18 09:05 Other Labs: Lab Results x24hrs 10/12/18 10/12/18 10/11/18 Range/Units 09:05 09:05 16:26 WBC 0.3 L* (4.8-10.8) x10^3/uL RBC 3.10 L (4.20-5.40) 10^6/uL Hgb 9.7 L (12.0-16.0) g/dL Hct 27.8 L (37.0-47.0) % MCV 89.5 (81.0-99.0) fL MCH 31.3 H (27.0-31.0) pg MCHC 35.0 (32.0-36.0) g/dL RDW 15.2 H (12.0-15.0) % Plt Count 22 L* (130-450) 10^3/uL MPV 8.0 (7.9-10.8) fL Neut # (Auto) Not Reportable Lymph # (Auto) Not Reportable [place] # (Auto) Not Reportable Eos # (Auto) Not Reportable Baso # (Auto) Not Reportable Absolute Nucleated RBC Not Reportable Total Counted 50 Band Neuts % (Manual) 0 (0 - 10) % Abnorm Lymph % (Manual) 0 % Plasma Cell % (Manual) 2 % Nucleated RBC % Not Reportable Neutrophils # (Manual) 0.0 L* (1.5-6.6) 10^3/uL Lymphocytes # (Manual) 0.2 L (1.5-3.5) 10^3/uL Monocytes # (Manual) 0.1 (0.0-1.0) 10^3/uL Eosinophils # (Manual) 0.0 (0-0.7) 10^3/uL Basophils # (Manual) 0.0 (0-0.1) 10^3/uL Nucleated RBCs 2 % Differential Comment MANUAL DIFFERENTIAL Platelet Estimate DECREASED (<130,000) (NORMAL) Platelet Morphology NORMAL APPEARANCE (NORMAL) RBC Morph Micro Appear 2+ POLYCHROMASIA (NORMAL) Sodium 134 L (135-145) mmol/L Potassium 3.3 L (3.5-5.0) mmol/L Chloride 101 (101-111) mmol/L Carbon Dioxide 23 (21-32) mmol/L Anion Gap 10.0 (6-13) BUN 14 (6-20) mg/dL Creatinine 0.8 (0.4-1.0) mg/dL Estimated GFR (MDRD) 71 L (>89) Glucose 143 H (70-100) mg/dL Lactic Acid (0.5-2.2) mmol/L Calcium 8.7 (8.5-10.3) mg/dL Total Bilirubin 0.9 (0.2-1.0) mg/dL AST 26 (10-42) IU/L ALT 45 (10-60) IU/L Alkaline Phosphatase 68 (42-121) IU/L Troponin I (<0.49) ng/mL Total Protein 6.5 L (6.7-8.2) g/dL Albumin 3.5 (3.2-5.5) g/dL Globulin 3.0 (2.1-4.2) g/dL Albumin/Globulin Ratio 1.2 (1.0-2.2) Lipase (22-51) U/L Urine Color Urine Clarity (CLEAR) Urine pH (5.0-7.5) PH Ur Specific [place] (1.002-1.030) Urine Protein (NEGATIVE) mg/dL Urine Glucose (UA) (NEGATIVE) mg/dL Urine Ketones (NEGATIVE) mg/dL Urine Occult Blood (NEGATIVE) Urine Nitrite (NEGATIVE) Urine Bilirubin (NEGATIVE) Urine Urobilinogen (NORMAL) E.U./dL Ur Leukocyte Esterase (NEGATIVE) Ur Microscopic Review Urine Culture Comments Blood Type O POSITIVE Antibody Screen NEGATIVE Crossmatch IS Only See Detail 10/11/18 10/11/18 10/11/18 Range/Units 11:24 11:24 11:24 WBC (4.8-10.8) x10^3/uL RBC (4.20-5.40) 10^6/uL Hgb (12.0-16.0) g/dL Hct (37.0-47.0) % MCV (81.0-99.0) fL MCH (27.0-31.0) pg MCHC (32.0-36.0) g/dL RDW (12.0-15.0) % Plt Count (130-450) 10^3/uL MPV (7.9-10.8) fL Neut # (Auto) Lymph # (Auto) [place] # (Auto) Eos # (Auto) Baso # (Auto) Absolute Nucleated RBC Total Counted Band Neuts % (Manual) (0 - 10) % Abnorm Lymph % (Manual) % Plasma Cell % (Manual) % Nucleated RBC % Neutrophils # (Manual) (1.5-6.6) 10^3/uL Lymphocytes # (Manual) (1.5-3.5) 10^3/uL Monocytes # (Manual) (0.0-1.0) 10^3/uL Eosinophils # (Manual) (0-0.7) 10^3/uL Basophils # (Manual) (0-0.1) 10^3/uL Nucleated RBCs % Differential Comment Platelet Estimate (NORMAL) Platelet Morphology (NORMAL) RBC Morph Micro Appear (NORMAL) Sodium (135-145) mmol/L Potassium (3.5-5.0) mmol/L Chloride (101-111) mmol/L Carbon Dioxide (21-32) mmol/L Anion Gap (6-13) BUN (6-20) mg/dL Creatinine (0.4-1.0) mg/dL Estimated GFR (MDRD) (>89) Glucose (70-100) mg/dL Lactic Acid 0.8 (0.5-2.2) mmol/L Calcium (8.5-10.3) mg/dL Total Bilirubin (0.2-1.0) mg/dL AST (10-42) IU/L ALT (10-60) IU/L Alkaline Phosphatase (42-121) IU/L Troponin I < 0.04 (<0.49) ng/mL Total Protein (6.7-8.2) g/dL Albumin (3.2-5.5) g/dL Globulin (2.1-4.2) g/dL Albumin/Globulin Ratio (1.0-2.2) Lipase (22-51) U/L Urine Color LT. YELLOW Urine Clarity CLEAR (CLEAR) Urine pH 7.0 (5.0-7.5) PH Ur Specific [place] <=1.005 (1.002-1.030) Urine Protein NEGATIVE (NEGATIVE) mg/dL Urine Glucose (UA) NEGATIVE (NEGATIVE) mg/dL Urine Ketones NEGATIVE (NEGATIVE) mg/dL Urine Occult Blood NEGATIVE (NEGATIVE) Urine Nitrite NEGATIVE (NEGATIVE) Urine Bilirubin NEGATIVE (NEGATIVE) Urine Urobilinogen 0.2 (NORMAL) (NORMAL) E.U./dL Ur Leukocyte Esterase NEGATIVE (NEGATIVE) Ur Microscopic Review NOT INDICATED Urine Culture Comments NOT INDICATED Blood Type Antibody Screen Crossmatch IS Only 10/11/18 10/11/18 Range/Units 11:24 11:24 WBC 0.3 L* (4.8-10.8) x10^3/uL RBC 2.11 L (4.20-5.40) 10^6/uL Hgb 6.7 L* (12.0-16.0) g/dL Hct 19.0 L* (37.0-47.0) % MCV 89.6 (81.0-99.0) fL MCH 31.7 H (27.0-31.0) pg MCHC 35.4 (32.0-36.0) g/dL RDW 18.2 H (12.0-15.0) % Plt Count 39 L (130-450) 10^3/uL MPV 7.1 L (7.9-10.8) fL Neut # (Auto) Not Reportable Lymph # (Auto) Not Reportable [place] # (Auto) Not Reportable Eos # (Auto) Not Reportable Baso # (Auto) Not Reportable Absolute Nucleated RBC Not Reportable Total Counted 50 Band Neuts % (Manual) 0 (0 - 10) % Abnorm Lymph % (Manual) 4 % Plasma Cell % (Manual) % Nucleated RBC % Not Reportable Neutrophils # (Manual) 0.0 L* (1.5-6.6) 10^3/uL Lymphocytes # (Manual) 0.3 L (1.5-3.5) 10^3/uL Monocytes # (Manual) 0.0 (0.0-1.0) 10^3/uL Eosinophils # (Manual) 0.0 (0-0.7) 10^3/uL Basophils # (Manual) 0.0 (0-0.1) 10^3/uL Nucleated RBCs % Differential Comment MANUAL DIFFERENTIAL Platelet Estimate DECREASED (<130,000) (NORMAL) Platelet Morphology NORMAL APPEARANCE (NORMAL) RBC Morph Micro Appear 2+ MICROCYTOSIS (NORMAL) Sodium 134 L (135-145) mmol/L Potassium 3.9 (3.5-5.0) mmol/L Chloride 102 (101-111) mmol/L Carbon Dioxide 25 (21-32) mmol/L Anion Gap 7.0 (6-13) BUN 19 (6-20) mg/dL Creatinine 0.7 (0.4-1.0) mg/dL Estimated GFR (MDRD) 83 L (>89) Glucose 107 H (70-100) mg/dL Lactic Acid (0.5-2.2) mmol/L Calcium 8.9 (8.5-10.3) mg/dL Total Bilirubin 0.8 (0.2-1.0) mg/dL AST 30 (10-42) IU/L ALT 57 (10-60) IU/L Alkaline Phosphatase 81 (42-121) IU/L Troponin I (<0.49) ng/mL Total Protein 6.6 L (6.7-8.2) g/dL Albumin 3.5 (3.2-5.5) g/dL Globulin 3.1 (2.1-4.2) g/dL Albumin/Globulin Ratio 1.1 (1.0-2.2) Lipase 40 (22-51) U/L Urine Color Urine Clarity (CLEAR) Urine pH (5.0-7.5) PH Ur Specific [place] (1.002-1.030) Urine Protein (NEGATIVE) mg/dL Urine Glucose (UA) (NEGATIVE) mg/dL Urine Ketones (NEGATIVE) mg/dL Urine Occult Blood (NEGATIVE) Urine Nitrite (NEGATIVE) Urine Bilirubin (NEGATIVE) Urine Urobilinogen (NORMAL) E.U./dL Ur Leukocyte Esterase (NEGATIVE) Ur Microscopic Review Urine Culture Comments Blood Type Antibody Screen Crossmatch IS Only ABX Reporting Has patient been on IV antibiotics over the past 48 hours?: Yes Sepsis Event Note (H) - Evaluation Current Stage of Sepsis: Ruled out Possible source of Sepsis: positive: Unknown - Sepsis Criteria Sepsis Criteria: Suspected or Documented, Recorded Heart Rate greater than 90 bpm, WBC count greater than 12,000 or less than 4000 Assessment/Plan - Problem List (1) Fever and neutropenia Impression: no fever on last night. blood culture/UA culture are pending. WBC is 0.3, the same as yesterday Dr. Haro will pt on tomorrow, will followup continue IV Cipro/meropenum, antivirus and anti-fungus continue neutropenia precaution, and vital monitor (2) Anemia due to chemotherapy Conclusion/Plan: after transfuse 2 units of blood, pt feel energy come back to her continue monitor labs. (3) Pancytopenia Conclusion/Plan: per the patient's oncologist, Dr. Haro describes her pancytopenia to be a direct result of her current chemotherapy. Continue to routine labs, treat anemia, and monitor closely Plt. will transfus ion Plt as needed per pt's oncologist provider Madelin's recommendation. (4) Fatigue associated with anemia Conclusion/Plan: improved after blood transfusion. continue lab monitor (5) AML (acute myelogenous leukemia) Conclusion/Plan: advise pt closely followup her oncologist and Dr. Haro will see pt on tomorrow, followup (6) Oral lesion stable, no new complaints (7) Alopecia stable, no new complaints (8) Seasonal allergies stable, continue Zyrtec daily, (9) Hypertension Conclusion/Plan: stable, continue home meds
[2018-10-12 13:02] LABS: BILIRUBIN,URINE NEGATIVE (NEGATIVE); GLUCOSE, URINE (UA) NEGATIVE (NEGATIVE); KETONES,URINE (UA) TRACE mg/dL (NEGATIVE); LEUKOCYTE ESTERASE, URINE NEGATIVE (NEGATIVE); NITRITE,URINE NEGATIVE (NEGATIVE); OCCULT BLOOD,URINE MODERATE (NEGATIVE); PROTEIN,URINE NEGATIVE (NEGATIVE); UROBILINOGEN,URINE 1 (NORMAL) E.U./dL (NORMAL)
[2018-10-12 13:12] LABS: BACTERIA,URINE Few /HPF (None Seen); CLARITY,URINE CLEAR (CLEAR); RBC,URINE 0-5 /HPF (0-5); SQUAMOUS EPITHELIAL CELL,UR RARE Squamous (<= Few)
[2018-10-13] MEDS: CIPROFLOXACIN IV 400 MG/200 ML IV SCH ×3 (01:07→16:46)
[2018-10-13] MEDS: SODIUM CHLORIDE FLUSH 0.9% 10 ML SYRINGE IVP SCH ×3 (02:07→16:47)
[2018-10-13] MEDS: MEROPENEM 1 GM in SODIUM CHLORIDE 0.9% MINIBAG 100 ML IV SCH ×3 (02:14→18:21)
[2018-10-13 06:00] LABS: BASOPHILS % (AUTO) 0.2 %; EOSINOPHILS % (AUTO) 0.7 %; LYMPHOCYTES % (AUTO) 60.3 %; MEAN CORPUSCULAR HEMOGLOBIN 31.2 pg (27.0-31.0); MEAN CORPUSCULAR HGB CONC 33.7 g/dL (32.0-36.0); MEAN CORPUSCULAR VOLUME 92.6 fL (81.0-99.0); MEAN PLATELET VOLUME 7.2 fL (7.9-10.8); MONOCYTES % (AUTO) 33.5 %; NEUTROPHILS % (AUTO) 5.3 %; RED BLOOD COUNT 2.89 10^6/uL (4.20-5.40); RED CELL DISTRIBUTION WIDTH 15.6 % (12.0-15.0)
[2018-10-13 06:06] LABS: ALBUMIN 2.9 g/dL (3.2-5.5); BILIRUBIN,TOTAL 0.7 mg/dL (0.2-1.0); CALCIUM 8.5 mg/dL (8.5-10.3); CREATININE 0.7 mg/dL (0.4-1.0); TOTAL PROTEIN 5.8 g/dL (6.7-8.2)
[2018-10-13 06:07] LABS: PLT - PLATELET COUNT 18 10^3/uL (130-450); WHITE BLOOD COUNT 0.5 x10^3/uL (4.8-10.8)
[2018-10-13 06:41] LABS: ABNORMAL LYMPHS % (MANUAL) 0 %; BAND NEUTROPHILS % (MANUAL) 0 %
[2018-10-13 06:47] LABS: NEUTROPHILS % (MANUAL) 4 %
[2018-10-13 06:51] LABS: LYMPHOCYTES # (MANUAL) 0.3 10^3/uL (1.5-3.5); LYMPHOCYTES % (MANUAL) 62 %; MONOCYTES # (MANUAL) 0.2 10^3/uL (0.0-1.0)
[2018-10-13 06:52] LABS: PLATELET ESTIMATE, MANUAL DECREASED (<130,000) (NORMAL); RBC MORPHOLOGY (MULTIPLE) 1+ ANISOCYTOSIS (NORMAL)
[2018-10-13] MEDS: FLUCONAZOLE 100 MG TABLET PO SCH (08:27)
[2018-10-13] MEDS: LISINOPRIL 5 MG TABLET PO SCH (08:27)
[2018-10-13] MEDS: CHOLECALCIFEROL 5,000 UNIT CAPSULE PO SCH (08:27)
[2018-10-13] MEDS: ACYCLOVIR 200 MG CAPSULE PO SCH (08:27)
[2018-10-13] MEDS: CETIRIZINE 10 MG TABLET PO SCH (08:27)
[2018-10-13] MEDS: OCUVITE PO SCH (08:28)
[2018-10-13] MEDS: FAMOTIDINE 20 MG TABLET PO SCH ×2 (08:28→19:56)
[2018-10-13] MEDS: POLYETHYLENE GLYCOL 3350 17 GM PACKET PO SCH (08:28)
[2018-10-13] MEDS: [UNRECOGNIZED DRUG - OTHER] PO SCH (08:28)
[2018-10-13] MEDS: WHEAT DEXTRIN POWDER PACKET PO SCH (08:28)
--- NOTE | 2018-10-13 14:16 | PROVIDER PROGRESS NOTE ---
Subjective - Prog Note Date Prog Note Date: 10/13/18 - Subjective Pt reports feeling: Improved Subjective: pt denies fever, chill, chest pain, shortness of breath. Pt state Dr. Haro will see her today. Pt also denies any bleeding. Pt's blood test did not indicate significantly improved. Current Medications - Current Medications Current Medications: Active Medications Acetaminophen (Tylenol) 650 mg PO Q4HR PRN PRN Reason: Pain or Fever > 38C (100.4F) Acyclovir (Zovirax) 400 mg PO DAILY [facility] Last Admin: 10/13/18 08:27 Dose: 400 mg Cetirizine HCl (Zyrtec) 10 mg PO DAILY [facility] Last Admin: 10/13/18 08:27 Dose: 10 mg Cholecalciferol (Vitamin D3) 5,000 unit PO DAILY [facility] Last Admin: 10/13/18 08:27 Dose: 5,000 unit Famotidine (Pepcid) 20 mg PO BID [facility] Last Admin: 10/13/18 08:28 Dose: 20 mg Fluconazole (Diflucan) 100 mg PO DAILY [facility] Last Admin: 10/13/18 08:27 Dose: 100 mg Ciprofloxacin (Cipro 400 Mg/200 Ml) 200 mls @ 200 mls/hr IV Q8H [facility] Last Infusion: 10/13/18 09:32 Dose: Infused Meropenem 1 gm/ Sodium (Chloride) 100 mls @ 200 mls/hr IV Q8H [facility] Last Infusion: 10/13/18 10:50 Dose: Infused Lisinopril (Zestril) 10 mg PO DAILY [facility] Last Admin: 10/13/18 08:27 Dose: 10 mg Ocuvite (Eye Vitamin () Otc Tab) 1 each PO DAILY [facility] Last Admin: 10/13/18 08:28 Dose: Not Given Polyethylene Glycol (Miralax) 17 gm PO DAILY [facility] Last Admin: 10/13/18 08:28 Dose: Not Given Prochlorperazine Edisylate (Compazine Inj) 10 mg IVP Q6HR PRN PRN Reason: Nausea / Vomiting Sodium Chloride (Normal Saline Flush 0.9%) 10 ml IVP PRN PRN PRN Reason: NEEDED PER PROVIDER ORDERS Last Admin: 10/11/18 17:35 Dose: 10 ml Sodium Chloride (Normal Saline Flush 0.9%) 10 ml IVP 0100,0900,1700 [facility] Last Admin: 10/13/18 08:28 Dose: 10 ml Temazepam (Restoril) 15 mg PO QPM PRN PRN Reason: Insomnia Wheat Dextrin (Benefiber) 1 packet PO DAILY [facility] Last Admin: 10/13/18 08:28 Dose: Not Given Lisinopril 10 mg PO DAILY 08/31/14 Acyclovir 400 mg PO DAILY 09/17/18 C,E,Zinc,Copper 11/Rrsko0g/Lut [Ocuvite Adult 50 Plus Softgel] 1 cap PO DAILY Cetirizine HCl 10 mg PO DAILY 10/11/18 Cholecalciferol (Vitamin D3) [Vitamin D3] 5,000 units PO DAILY 10/11/18 Cytarabine [Kay-C] 1,600 mg IV MOWEFR@0500,1700 10/11/18 Fluconazole 100 mg PO DAILY 10/11/18 [place]-3 Acid Ethyl Esters [Lovaza] 1 gm PO DAILY 10/11/18 Polyethylene Glycol 3350 17 gm PO DAILY 10/11/18 Wheat Dextrin [Benefiber] 1 packet PO DAILY 10/11/18 Objective - Vital Signs/Intake & Output Reviewed Vital Signs: Yes Vital Signs: Vital Signs x48h Temp Pulse Resp BP Pulse Ox 10/13/18 13:00 36.7 C 86 18 121/52 L 100 10/13/18 08:08 36.9 C 87 20 132/65 H 100 Intake & Output: Intake & Output 10/10/18 10/11/18 10/12/18 10/13/18 23:59 23:59 23:59 23:59 Intake Total 044.838 9348.104 2920.000 Balance 094.546 2342.104 2920.000 - Objective General Appearance: positive: No acute distress, Alert. negative: Lethargic Eyes Bilateral: positive: Normal inspection, PERRL, No lid inflammation, Conjunctivae nml ENT: positive: ENT inspection nml, Pharynx nml, No signs of dehydration. negative: Purulent nasal drainage, Pharyngeal erythema, Oral lesions Neck: positive: Nml inspection, Thyroid nml, No JVD, Trachea midline. negative: Thyromegaly, Lymphadenopathy (R), Lymphadenopathy (L), Stiff neck, Swe lling/bruising, Tracheal deviation Respiratory: positive: Chest non-tender, No respiratory distress, Breath sounds nml. negative: Wheezes, Rales, Rhonchi Cardiovascular: positive: Regular rate & rhythm, No murmur, No gallop. negative: Irregularly irregular, Extrasystoles, Tachycardia, Bradycardia, JVD present, Systolic murmur, Diastolic murmur Peripheral Pulses: 2+ Radial (R), 2+ Radial (L), 2+ Dorsalis pedis (R), 2+ Do rsalis pedis (L) Abdomen: positive: Non-tender, No organomegaly, Nml bowel sounds, No distention. negative: Tenderness, Guarding, Rebound Back: positive: Nml inspection. negative: CVA tenderness (R), CVA tenderness (L) Skin: positive: Color nml, No rash, Warm, Dry. negative: Cyanosis, Diaphoresis, Pallor, Skin rash Extremities: positive: Non-tender, Full ROM, Nml appearance. negative: Calf ten derness, Joint swelling, Maritza's sign/cords Neurologic/Psychiatric: positive: Oriented x3, Motor nml, Sensation nml, Mood/affect nml. negative: Weakness, Sensory loss, Facial droop, Slurred/abnml speech, Depressed mood/affect - Lab Results Fish Bones: 10/13/18 05:35 10/13/18 05:35 Other Labs: Lab Results x24hrs 10/13/18 10/13/18 Range/Units 05:35 05:35 WBC 0.5 L* (4.8-10.8) x10^3/uL RBC 2.89 L (4.20-5.40) 10^6/uL Hgb 9.0 L (12.0-16.0) g/dL Hct 26.8 L (37.0-47.0) % MCV 92.6 (81.0-99.0) fL MCH 31.2 H (27.0-31.0) pg MCHC 33.7 (32.0-36.0) g/dL RDW 15.6 H (12.0-15.0) % Plt Count 18 L* (130-450) 10^3/uL MPV 7.2 L (7.9-10.8) fL Neut # (Auto) Not Reportable Lymph # (Auto) Not Reportable [place] # (Auto) Not Reportable Eos # (Auto) Not Reportable Baso # (Auto) Not Reportable Absolute Nucleated RBC Not Reportable Total Counted 50 Band Neuts % (Manual) 0 (0 - 10) % Abnorm Lymph % (Manual) 0 % Nucleated RBC % Not Reportable Neutrophils # (Manual) 0.0 L* (1.5-6.6) 10^3/uL Lymphocytes # (Manual) 0.3 L (1.5-3.5) 10^3/uL Monocytes # (Manual) 0.2 (0.0-1.0) 10^3/uL Eosinophils # (Manual) 0.0 (0-0.7) 10^3/uL Basophils # (Manual) 0.0 (0-0.1) 10^3/uL Platelet Estimate DECREASED (<130,000) (NORMAL) RBC Morph Micro Appear 1+ ANISOCYTOSIS (NORMAL) Sodium 136 (135-145) mmol/L Potassium 4.1 (3.5-5.0) mmol/L Chloride 105 (101-111) mmol/L Carbon Dioxide 24 (21-32) mmol/L Anion Gap 7.0 (6-13) BUN 12 (6-20) mg/dL Creatinine 0.7 (0.4-1.0) mg/dL Estimated GFR (MDRD) 83 L (>89) Glucose 118 H (70-100) mg/dL Calcium 8.5 (8.5-10.3) mg/dL Total Bilirubin 0.7 (0.2-1.0) mg/dL AST 19 (10-42) IU/L ALT 36 (10-60) IU/L Alkaline Phosphatase 54 (42-121) IU/L Total Protein 5.8 L (6.7-8.2) g/dL Albumin 2.9 L (3.2-5.5) g/dL Globulin 2.9 (2.1-4.2) g/dL Albumin/Globulin Ratio 1.0 (1.0-2.2) ABX Reporting Has patient been on IV antibiotics over the past 48 hours?: Yes Sepsis Event Note (H) - Evaluation Current Stage of Sepsis: Ruled out Possible source of Sepsis: positive: Unknown - Sepsis Criteria Sepsis Criteria: Suspected or Documented, Recorded Heart Rate greater than 90 bpm, WBC count greater than 12,000 or less than 4000 Assessment/Plan - Problem List (1) Fever and neutropenia Impression: 10/13 pt's WBC is still 0.5, no significant improved. no fever, and stable. blood culture is negative Dr. Haro will pt today, will followup continue IV Cipro/meropenum, antivirus and anti-fungus continue neutropenia precaution, and vital monitor no fever on last night. blood culture/UA culture are pending. WBC is 0.3, the same as yesterday Dr. Haro will pt on tomorrow, will followup continue IV Cipro/meropenum, antivirus and anti-fungus continue neutropenia precaution, and vital monitor (2) Anemia due to chemotherapy Conclusion/Plan: 10/13 HGB is stable, continue lab monitor after transfuse 2 units of blood, pt feel energy come back to her continue monitor labs. (3) Pancytopenia Conclusion/Plan: WBC and Plt is not improved, Dr. Haro will see today, will followup per the patient's oncologist, Dr. Haro describes her pancytopenia to be a direct result of her current chemotherapy. Continue to routine labs, treat anemia, and monitor closely Plt. will transfusion Plt as needed per pt's oncologist provider Madelin's recommendation. (4) Fatigue associated with anemia Conclusion/Plan: improved improved after blood transfusion. continue lab monitor (5) AML (acute myelogenous leukemia) Conclusion/Plan: advise pt closely followup her oncologist and Dr. Haro will see pt on tomorrow, followup (6) Oral lesion stable, no new complaints (7) Alopecia stable, no new complaints (8) Seasonal allergies stable, continue Zyrtec daily, (9) Hypertension Conclusion/Plan: stable, continue home meds
--- NOTE | 2018-10-13 19:51 | ONCOLOGY / HEMATOLOGY ---
DATE OF SERVICE: 10/13/2018 Physician: Aline Haro MD INPATIENT CONSULT NOTE REQUESTING PROVIDER: Cook. REASON FOR CONSULTATION: Patient with a history of AML getting active chemotherapy, now admitted for neutropenic fever. IDENTIFICATION/CHIEF COMPLAINT/HISTORY OF PRESENT ILLNESS: Patient is a pleasant 68-year-old female who has been admitted to the hospital for neutropenic fever. Patient finished her second cycle of consolidation on 09/28/2018, and her counts had been on the decline. She is neutropenic today with an ANC of 0. She reported 2 episodes of a temperature of 101 and 100.7 and thus was admitted into the hospital. The blood cultures so far have not shown anything. Patient has been afebrile since she has been in the hospital. She reports some abdominal discomfort and diarrhea since being started on antibiotics. She was feeling very fatigued at the time of her ED visit and was found to have a hemoglobin of 6.7. However, after transfusion of 2 units of packed RBCs, the patient has been feeling relatively well. She does report mouth sores and some sore throat as well. She is using the salt water rinses to help with the pain and is on a mechanical soft diet. REVIEW OF SYSTEMS: As per HPI. All others negative. ECOG performance status 1. FAMILY AND SOCIAL HISTORY: Reviewed as per my note 09/26, (2:31) reviewed and unchanged. PHYSICAL EXAMINATION VITAL SIGNS: Reviewed as per chart. HEENT: Pallor present. Oral mucosa moist. Several aphthous ulcers in her mouth. His tongue is swollen. SKIN: Dry skin. No bruising. No petechia. CVS: Trace pedal edema. LUNGS: She is breathing normally does use accessory muscles. EXTREMITIES: Arthritic changes present. No clubbing or cyanosis. NEUROLOGIC: No focal finding. PSYCHIATRIC: Appropriate affect. MEDICATIONS: Reviewed as per chart. ALLERGIES: As per chart. PAST MEDICAL HISTORY: As per chart. ASSESSMENT AND PLAN 1. Acute myelogenous leukemia with normal cytogenetics, ITD negative, NPM1 positive, CEBPA PCR negative, IDH1 mutation positive. Patient is status post induction chemotherapy, followed by 2 cycles of consolidation chemotherapy, now admitted for neutropenic fever. I agree with the team to continue to watch her for 48 hours. If she remains afebrile for 48 hours and her cultures do not grow any organisms, she can be discharged on oral levofloxacin for a course of 10 days. Patient will follow up with me in clinic in 1 week. 2. Thrombocytopenia, which is worsening. Patient does have some nosebleeds. Given this patient should be transfused leukocyte depleted and irradiated platelets. 3. Plan is to go ahead with cycle 2 of consolidation. Given her current admission, we will have to delay this for about 1-2 weeks. Patient reports understanding of same. Patient has already been seen at [facility], and patient is not willing to go for transplant at this time. 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 Thank you very much for the consultation. Oncology team will be available to answer any questions. TD: 10/13/2018 18:01 [email or web address]
[2018-10-14] MEDS: SODIUM CHLORIDE FLUSH 0.9% 10 ML SYRINGE IVP SCH ×3 (01:17→11:19)
[2018-10-14] MEDS: CIPROFLOXACIN IV 400 MG/200 ML IV SCH ×2 (01:28→09:06)
[2018-10-14] MEDS: SODIUM CHLORIDE FLUSH 0.9% 10 ML SYRINGE IVP PRN ×3 (01:31→11:19)
[2018-10-14] MEDS: MEROPENEM 1 GM in SODIUM CHLORIDE 0.9% MINIBAG 100 ML IV SCH ×2 (02:49→10:28)
[2018-10-14 06:14] LABS: LYMPHOCYTES # (AUTO) 0.4 10^3/uL (1.5-3.5)
[2018-10-14 06:20] LABS: BASOPHILS % (AUTO) 0.1 %; EOSINOPHILS % (AUTO) 0.5 %; HGB - HEMOGLOBIN 9.1 g/dL (12.0-16.0); LYMPHOCYTES % (AUTO) 48.9 %; MEAN CORPUSCULAR HEMOGLOBIN 31.5 pg (27.0-31.0); MEAN CORPUSCULAR HGB CONC 34.5 g/dL (32.0-36.0); MEAN CORPUSCULAR VOLUME 91.2 fL (81.0-99.0); MEAN PLATELET VOLUME 7.1 fL (7.9-10.8); MONOCYTES # (AUTO) 0.3 10^3/uL (0.0-1.0); MONOCYTES % (AUTO) 39.1 %; NEUTROPHILS % (AUTO) 11.4 %; PLT - PLATELET COUNT 87 10^3/uL (130-450); RED BLOOD COUNT 2.89 10^6/uL (4.20-5.40); RED CELL DISTRIBUTION WIDTH 15.5 % (12.0-15.0)
[2018-10-14 06:27] LABS: BILIRUBIN,TOTAL 0.4 mg/dL (0.2-1.0); CALCIUM 8.8 mg/dL (8.5-10.3); CREATININE 0.7 mg/dL (0.4-1.0); NEUTROPHILS # (AUTO) 0.1 10^3/uL (1.5-6.6); TOTAL PROTEIN 6.1 g/dL (6.7-8.2); WHITE BLOOD COUNT 0.9 x10^3/uL (4.8-10.8)
[2018-10-14 06:44] LABS: PLATELET ESTIMATE, MANUAL DECREASED (<130,000) (NORMAL); RBC MORPHOLOGY (MULTIPLE) NORMAL APPEARANCE (NORMAL)
[2018-10-14 06:45] LABS: DIFFERENTIAL COMMENT MANUAL=AUTO DIFF
[2018-10-14] MEDS: CETIRIZINE 10 MG TABLET PO SCH (08:59)
[2018-10-14] MEDS: LISINOPRIL 5 MG TABLET PO SCH (08:59)
[2018-10-14] MEDS: CHOLECALCIFEROL 5,000 UNIT CAPSULE PO SCH (08:59)
[2018-10-14] MEDS: ACYCLOVIR 200 MG CAPSULE PO SCH (08:59)
[2018-10-14] MEDS: FAMOTIDINE 20 MG TABLET PO SCH (08:59)
[2018-10-14] MEDS: FLUCONAZOLE 100 MG TABLET PO SCH (08:59)
[2018-10-14] MEDS: POLYETHYLENE GLYCOL 3350 17 GM PACKET PO SCH (09:00)
[2018-10-14] MEDS: OCUVITE PO SCH (09:00)
[2018-10-14] MEDS: WHEAT DEXTRIN POWDER PACKET PO SCH (09:00)
[2018-10-14] MEDS: [UNRECOGNIZED DRUG - OTHER] PO SCH (09:00)
--- NOTE | 2018-10-14 10:47 | Discharge Plan ---
Discharge Plan Disposition: Home, Self Care Condition: Poor Prescriptions: Levofloxacin [Levaquin] 500 mg PO DAILY #10 tablet Diet: Regular Activity Restrictions: Activity as Tolerated Shower Restrictions: No (fall precaution) Instruction Topics: Levofloxacin tablets, Neutropenia Additional Instructions or Follow Up instructions: You may followup your PCP in one week and followup your oncologist as your schedule. Your fever was resolved. Your blood culture was negative for bacteria. You are prescribed Levaquin antibiotics per your oncologist recommend for your neutropenia. Should your symptoms return or worsen, you may present ER, call 911 or your PCP or oncologist for help. No Smoking: If you smoke, Please STOP! Call for help. Follow-up with: Justin Conway DO [Primary Care Provider] -
--- NOTE | 2018-10-14 11:02 | DISCHARGE SUMMARY ---
"Discharge Summary Discharge Date: 10/14/18 Discharging Provider: RYAN Primary Care Provider: Justin Parmar Condition at Discharge: Poor Discharge Disposition: Home, Self Care Discharge Facility Name: Home - DIAGNOSES Admission Diagnoses: (1) Fever and neutropenia (2) Anemia due to chemotherapy (3) Pancytopenia (4) Fatigue associated with anemia (5) AML (acute myelogenous leukemia) (6) Oral lesion (7) Alopecia (8) Seasonal allergies (9) Hypertension Discharge Diagnoses with Status of Each Condition: (1) Fever and neutropenia No more fever, blood culture is negative. WBC increased to 0.9 today. consulted with pt, and told me by phone she though pt can be d/c today with antibiotic Levaquin. Pt state she had Acyclovir and Fluconazole at home followup oncologist as her schedule (2) Anemia due to chemotherapy stable, HGB is 9.1 today (3) Pancytopenia improved. followup oncologist as her schedule (4) Fatigue associated with anemia great improved after transfusion of blood (5) AML (acute myelogenous leukemia) stable now. followup oncologist as her schedule (6) Oral lesion resolved (7) Alopecia stable (8) Seasonal allergies stable (9) Hypertension stable - HPI History of Present Illness: refer from [facility] on 10/11/18 for pt as the following: Lashanda Turcios is a pale appearing 68-year old female with a past medical history of hypertension, hyperlipidemia, peripheral neuropathy, pantytopenia, neurtopenia, AML, osteoarthritis, osteopenia, recurrent UTI, BLE edema, impaired fasting glucose, chronic low back pain, ataxia, atrophic vaginitis, dysuria, cervical spine DJD, status post cervical laminectomy, seasonal allergies, post nasal drip, febrocystic breast disease and chronic constipation. She is currently being seen by Dr. Haro for treatment of her acute myelogenous leukemia and is status post induction chemotherapy, followed by 2 cycles of consolidation therapy. On 10/06/18, she had her last appointment and was transfused with platelets for a low platelet count of 11. This morning she awoke with a fever reported as 101, had mild nausea, mild shortness of breath with exertion, and was profoundly tired. She contacted oncology who instructed her to come to the ED. Once in the ED the patient was found to have no neutrophils on arrival, an H/H of 6.7/19.0, tachycardic with a heart rate of 114, hypotensive with a blood pressure of 97/71, and had continued fatigue. On exam, the patient is slightly short of breath, but can speak in full sentences, she denies syncope, confusion, chest pain, chest pressure, anxiety, vomiting, diarrhea, bleeding, or a productive cough. She denies sick contacts, and has had no recent illness. Her , Barak is at the bedside and appears well. Given her worrisome findings of early sepsis, and severe anemia, she was admitted to the hospital. - CONSULTS | PROCEDURES Consultations: Dr. Haro, pt's oncologist - HOSPITAL COURSE Hospital Course: pt was admitted for neuropenia fever. pt had fever at home and elevated temperature at hospital. pt was treated with antivirus, antifugus and antibiotics. after treatment, pt has no more fever. Blood culture is negative for infection. Pt hab blood transfusion, then HGB is stable. Dr. Haro saw pt, and recommend pt can be d/c to home today with PO antibiotics. Pt had Plt transfusion on last night per Dr. Haro's recommendation. Pt has a schedule to see Dr Haro on next week - ALLERGIES Allergies/Adverse Reactions: Allergies Allergy/AdvReac Type Severity Reaction Status Date / Time Cephalosporins Allergy Rash Verified 10/11/18 09:53 estrogens, conjugated Allergy Unknown Verified 10/11/18 09:53 [From Premarin] Sulfa (Sulfonamide Allergy Rash Verified 10/11/18 09:53 Antibiotics) thimerosal Allergy Rash Verified 10/11/18 09:53 - MEDICATIONS Home Medications: Ambulatory Orders Medication Instructions Recorded Confirmed Lisinopril 10 mg PO DAILY 08/31/14 10/11/18 Acyclovir 400 mg PO DAILY 09/17/18 10/11/18 C,E,Zinc,Copper 11/Crfgr4r/Lut 1 cap PO DAILY 10/11/18 10/11/18 [Ocuvite Adult 50 Plus Softgel] Cetirizine HCl 10 mg PO DAILY 10/11/18 10/11/18 Cholecalciferol (Vitamin D3) 5,000 units PO DAILY 10/11/18 10/11/18 [Vitamin D3] Cytarabine [Kay-C] 1,600 mg IV MOWEFR@0500,1700 10/11/18 10/11/18 Fluconazole 100 mg PO DAILY 10/11/18 10/11/18 [place]-3 Acid Ethyl Esters [Lovaza] 1 gm PO DAILY 10/11/18 10/11/18 Polyethylene Glycol 3350 17 gm PO DAILY 10/11/18 10/11/18 Wheat Dextrin [Benefiber] 1 packet PO DAILY 10/11/18 10/11/18 Levofloxacin [Levaquin] 500 mg PO DAILY #10 tablet 10/14/18 - PHYSICAL EXAM AT DISCHARGE General Appearance: positive: No acute distress, Alert. negative: Lethargic Eyes Bilateral: positive: Normal inspection, PERRL, EOMI, No lid inflammation, Conjunctivae nml ENT: positive: ENT inspection nml, Pharynx nml, No signs of dehydration. negative: Purulent nasal drainage, Pharyngeal erythema, Oral lesions Neck: positive: Nml inspection, Thyroid nml, No JVD, Trachea midline. negative: Thyromegaly, Lymphadenopathy (R), Lymphadenopathy (L), Stiff neck, Swelling/bruising, Tracheal deviation Respiratory: positive: Chest non-tender, No respiratory distress, Breath sounds nml. negative: Wheezes, Rales, Rhonchi Cardiovascular: positive: Regular rate & rhythm, No murmur, No gallop. negative: Irregularly irregular, Extrasystoles, Tachycardia, Bradycardia, JVD present, Systolic murmur Peripheral Pulses: positive: 2+ Abdomen: positive: Non-tender, No organomegaly, Nml bowel sounds, No distention. negative: Tenderness, Guarding, Rebound Back: positive: Nml inspection. negative: CVA tenderness (R), CVA tenderness (L) Skin: positive: Color nml, No rash, Warm, Dry. negative: Cyanosis, Diaphoresis, Pallor, Skin rash, Decubitus Extremities: positive: Non-tender, Full ROM, Nml appearance, No pedal edema. negative: Pedal edema, Calf tenderness, Joint swelling, Maritza's sign/cords Neurologic/Psychiatric: positive: Oriented x3, Motor nml, Sensation nml, Mood/affect nml. negative: Weakness, Sensory loss, Facial droop, Slurred/abnml speech, Depressed mood/affect - LABS Result Diagrams: 10/14/18 06:00 10/14/18 06:00 - SEPSIS Current Stage of Sepsis: Ruled out Possible source of Sepsis: Unknown Sepsis Criteria: Suspected or Documented, Recorded Heart Rate greater than 90 bpm, WBC count greater than 12,000 or less than 4000 - FOLLOW UP Follow Up: You may followup your PCP in one week and followup your oncologist as your schedule. Your fever was resolved. Your blood culture was negative for bacteria. You are prescribed Levaquin antibiotics per your oncologist recommend for your neutropenia. Should your symptoms return or worsen, you may present ER, call 911 or your PCP or oncologist for help. - TIME SPENT Time Spent in Discharge (Minutes): 50"
[2018-10-14] MEDS ORDERED: SODIUM CHLORIDE FLUSH 0.9% 10 ML SYRINGE ONE (11:07)
[2018-10-14 12:12] VITALS: BP 138/65
== END 2018-10-14 12:15 | disposition home or self-care (01) | DRG 809 ==
LOC: ED 09:33 → MS2 14:51
PROVIDERS: ADMIT Nurse Practitioner; ATTEND Nurse Practitioner
DX: D70.9 Neutropenia, unspecified (principal); D61.810 Antineoplastic chemotherapy induced pancytopenia; C92.00 Acute myeloblastic leukemia, not having achieved remission; T45.1X5A Adverse effect of antineoplastic and immunosuppressive drugs, initial encounter; R50.81 Fever presenting with conditions classified elsewhere; Z92.21 Personal history of antineoplastic chemotherapy; I10 Essential (primary) hypertension; Z88.2 Allergy status to sulfonamides; K13.70 Unspecified lesions of oral mucosa; L65.9 Nonscarring hair loss, unspecified; J30.2 Other seasonal allergic rhinitis; E78.5 Hyperlipidemia, unspecified; G62.9 Polyneuropathy, unspecified; M19.90 Unspecified osteoarthritis, unspecified site; M85.80 Other specified disorders of bone density and structure, unspecified site; Z87.440 Personal history of urinary (tract) infections; G89.29 Other chronic pain; M54.5 Low back pain; R27.0 Ataxia, unspecified; K59.00 Constipation, unspecified; N60.19 Diffuse cystic mastopathy of unspecified breast; R00.0 Tachycardia, unspecified; I95.9 Hypotension, unspecified; K21.9 Gastro-esophageal reflux disease without esophagitis; R35.1 Nocturia; R35.0 Frequency of micturition; J32.9 Chronic sinusitis, unspecified
CPT/HCPCS: 36415; 71046; 80053; 81001; 81003; 82272; 83605; 83690; 84484; 85025; 86850; 86900; 86901; 86920; 87040; 87086; 99233; 99283; 99284

== ENCOUNTER 2019-10-07 14:38 | Outpatient (CLI) | payer BC ==
--- NOTE | 2019-10-10 10:51 | Mammography Report ---
Reason: ROUTINE MAMMO Procedure Date: 10/07/2019 Accession Number: [id number] / [id number] Procedure: [facility] - Screening Mammo w/Abisai CPT Code: Final Report FULL RESULT: EXAM: Screening Mammo w/Abisai DATE: 10/07/2019 3:29 PM CLINICAL HISTORY: Nulliparous patient for routine screening. Personal history of leukemia. Prior breast biopsy. TECHNIQUE: (B) - Bilateral CC and MLO views were obtained. COMPARISON: 11/11/2017, 08/28/2016, 07/23/2015, 07/13/2014, 05/17/2013, 05/03/2012 and 04/24/2011. PARENCHYMAL PATTERN: (A) - The breasts demonstrate scattered fibroglandular densities bilaterally. FINDINGS: No significant interval change on the right. A few scattered calcifications and postsurgical changes are stable. There are no suspicious masses, calcifications, skin thickening, or areas of distortion. On the left there are 3 or 4 small nodular densities in the immediate retroareolar breast best seen on MLO tomographic images 63, 56 and 44 and on CC tomographic images 45, 40 and 30. These may have been previously present but better demonstrated by tomography. No suspicious microcalcifications, architectural distortion, or skin thickening. IMPRESSION: Incomplete examination. BI-RADS category 0. Needs additional evaluation left breast by ultrasound. Negative right breast. RECOMMENDATION: (ADDUS) - Targeted ultrasound recommended. Left retroareolar breast. BI-RADS CATEGORY: (0) - Incomplete Examination - need additional evaluation. STANDARD QUALIFYING STATEMENTS: 1. This examination was not reviewed with the aid of Computer-Aided Detection (CAD). 2. A negative or benign imaging report should not preclude biopsy if clinically suspicious findings are present. 3. Dense breasts may obscure an underlying neoplasm. 4. This examination was reviewed with the aid of 3D breast imaging (tomosynthesis).
== END 2019-10-07 14:39 | disposition home or self-care (01) ==
LOC: DI 14:38
DX: Z12.31 Encounter for screening mammogram for malignant neoplasm of breast (principal); R92.8 Other abnormal and inconclusive findings on diagnostic imaging of breast; Z85.6 Personal history of leukemia
CPT/HCPCS: 77063; 77067

== ENCOUNTER 2019-10-18 12:51 | Outpatient (CLI) | payer BC ==
--- NOTE | 2019-10-18 15:01 | Ultrasound Report ---
Reason: ABN MAMMO - SPEC VIEWS LT BREAST US Procedure Date: 10/18/2019 Accession Number: [id number] / [id number] Procedure: US - Breast Unilateral Limited CPT Code: Final Report FULL RESULT: EXAM: Breast Unilateral Limited DATE: 10/18/2019 2:09 PM CLINICAL HISTORY: ABN MAMMO - SPEC VIEWS LT BREAST US COMPARISON: None. TECHNIQUE: Targeted ultrasound was performed of the left breast in the area of clinical concern in the immediate retroareolar and periareolar region. Color Doppler was employed as appropriate. FINDINGS: Normal breast tissue without architectural distortion or solid mass is identified. There are multiple simple appearing cysts which measure up to 0.3 cm and correlate to mammographic findings, typically benign. No architectural distortion or suspicious fluid collection is identified. IMPRESSION: Benign findings RECOMMENDATION: Recommend routine annual Screening mammography unless otherwise clinically indicated. BIRADS CATEGORY 2: Benign findings RADIA
== END 2019-10-18 12:52 | disposition home or self-care (01) ==
LOC: DI 12:51
PROVIDERS: ATTEND Family Medicine
DX: N60.12 Diffuse cystic mastopathy of left breast (principal)
CPT/HCPCS: 76642